=== PATIENT | male | born 1965 | race Caucasian/White ===

== ENCOUNTER 2018-02-14 09:48 | Outpatient (REF) | payer MEDICARE, SELFPAY ==
[2018-02-14 17:13] LABS: Anion Gap 11.2 mmol/L (3-11); BUN 40 mg/dL (7-18); CO2 24.8 mmol/L (21.0-32.0); CREATININE 3.14 mg/dL (0.70-1.30); Calcium 8.9 mg/dL (8.5-10.1); Chloride 107 mmol/L (98-107); Estimated GFR 21.04 (mL/min/1.73m2); Glucose 117 mg/dL (70-100); Potassium 4.5 mmol/L (3.5-5.1); Sodium 143 mmol/L (136-145); Uric Acid 8.4 mg/dL (3.5-7.2)
[2018-02-14 17:49] LABS: Magnesium 1.8 mg/dL (1.8-2.4)
== END 2018-02-14 10:08 ==
LOC: NCHCN 09:48
PROVIDERS: PCP Nurse Practitioner Family; Visit Provider Nurse Practitioner Family
DX: R00.1 Bradycardia, unspecified (principal); R22.9 Localized swelling, mass and lump, unspecified; R39.9 Unspecified symptoms and signs involving the genitourinary system; E66.9 Obesity, unspecified; N18.4 Chronic kidney disease, stage 4 (severe); I10 Essential (primary) hypertension; M1A.9XX0 Chronic gout, unspecified, without tophus (tophi)
CPT/HCPCS: 80048; 83735; 84550

== ENCOUNTER 2018-02-16 02:10 | Outpatient (CLI) | payer MEDICARE, SELFPAY | END 2018-02-16 02:30 | PROVIDERS: PCP Nurse Practitioner Family; Visit Provider Nurse Practitioner Family | DX: R00.1 Bradycardia, unspecified (principal); I10 Essential (primary) hypertension | CPT/HCPCS: 93225 ==

== ENCOUNTER 2018-02-18 11:10 | Outpatient (CLI) | payer MEDICARE, SELFPAY ==
--- NOTE | 2018-02-21 16:06 | W.HOLTRPT ---
Holter Monitor Report Holter Monitor Note: Baseline rhythm is sinus. Rare single PAC. No SVT or atrial fibrillation. Very single PVC. No VT. Bradycardia. Symptoms: Chest tightness noted twice during sinus rhythm 67, 93 bpm, no ST-T wave changes. Average heart rate 76 bpm, range 52-123 bpm.
== END 2018-02-18 11:30 ==
LOC: RT 11:19
PROVIDERS: PCP Nurse Practitioner Family; Visit Provider Nurse Practitioner Family
DX: I49.1 Atrial premature depolarization (principal); I49.3 Ventricular premature depolarization
CPT/HCPCS: 93226

== ENCOUNTER 2018-02-21 12:00 | Outpatient (CLI) | payer MEDICARE, SELFPAY | END 2018-02-21 12:20 | PROVIDERS: PCP Nurse Practitioner Family; Referring Provider Nurse Practitioner Family; Visit Provider Internal Medicine Interventional Cardiology | DX: I49.1 Atrial premature depolarization (principal); I49.3 Ventricular premature depolarization | CPT/HCPCS: 93227 ==

== ENCOUNTER 2018-02-23 11:12 | Outpatient (CLI) | payer MEDICARE, SELFPAY ==
[2018-02-23 14:24] LABS: BUN 26 mg/dL (7-18); CREATININE 2.71 mg/dL (0.70-1.30); Calcium 8.9 mg/dL (8.5-10.1); Chloride 105 mmol/L (98-107); Estimated GFR 24.93 (mL/min/1.73m2); Glucose 111 mg/dL (70-100); Potassium 4.3 mmol/L (3.5-5.1); Sodium 140 mmol/L (136-145)
== END 2018-02-23 11:32 ==
PROVIDERS: PCP Nurse Practitioner Family; Visit Provider Internal Medicine Nephrology
DX: N18.4 Chronic kidney disease, stage 4 (severe) (principal); M1A.00X0 Idiopathic chronic gout, unspecified site, without tophus (tophi); N17.9 Acute kidney failure, unspecified
CPT/HCPCS: 36415; 80048; 86147; 84550